=== PATIENT | female | born 1995 | race Hispanic/Latino ===

== ENCOUNTER 2021-06-28 09:35 | Emergency (ER) | payer OTHER ==
[2021-06-28 11:21] LABS: Bilirubin Neg (Negative); Blood, Urine Negative (Negative); Clarity Clear (Clear); Glucose, Urine (Dipstick) Normal (Negative); Ketone, Urine Negative (Negative); Leukocyte Negative (Negative); Nitrite Negative (Negative); Protein, Urine (Dipstick) Negative (Neg-Trace); Urobilinogen Normal mg/dL (Less than 2); pH, Urine 6.5 (5.0-9.0)
[2021-06-28 11:24] LABS: #Eosinphils 0.1 10x3/uL (0.0-0.5); #Monocytes 0.7 10x3/uL (0.0-1.1); #Neutrophils 6.7 10x3/uL (1.5-8.4); %Basophils 0.4 % (0.0-2.0); %Eosinophils 0.8 % (0.0-6.0); %Neutrophils 72.4 % (40.0-75.0); Hemoglobin 14.2 g/dL (12.0-15.5); Mean Corpuscular HGB CONC 34.2 g/dL (32.0-36.0); Mean Corpuscular Hemoglobin 28.8 pg (27.0-33.0); Mean Corpuscular Volume 84.2 fl (81.6-98.3); Mean Platelet Volume 11.3 fl (7.4-10.4); Platelet Count 224 10x3/uL (150-450); RBC Distribution Width 11.9 % (11.5-14.5); Red Blood Cell (RBC) Count 4.93 10x6/uL (3.90-5.03); White Blood Cell (WBC) Count 9.2 10x3/uL (3.5-10.5)
== END 2021-06-28 12:50 | disposition home or self-care (01) ==
LOC: CSHERS 09:35
DX: O20.0 Threatened abortion (principal); Z3A.09 9 weeks gestation of pregnancy
CPT/HCPCS: 36415; 76815; 81003; 84702; 85025; 86900; 86901

== ENCOUNTER 2021-12-20 08:25 | Observation (INO) | payer OTHER ==
[2021-12-20] MEDS ORDERED: Docusate 100 MG CAP PO PRN (09:50)
[2021-12-20] MEDS ORDERED: Promethazine HCl 25 MG/ML VIAL IM PRN (09:50)
[2021-12-20] MEDS ORDERED: Lidocaine 1% (PF) 30 ML VIAL SC PRN (09:50)
[2021-12-20] MEDS ORDERED: Ondansetron PF 4 MG/2 ML Vial IVP PRN (09:50)
[2021-12-20] MEDS ORDERED: Acetaminophen 500 MG TAB PO PRN (09:50)
[2021-12-20] MEDS ORDERED: hydrALAZINE 20 MG/ML VIAL SLOW IVP PRN (09:50)
[2021-12-20] MEDS ORDERED: Zolpidem Tartrate 5 MG TAB PO PRN (09:50)
[2021-12-20 09:53] VITALS: BMI 29.9
[2021-12-20] MEDS: Betamet Acet/Betamet Na Ph 30 MG/5 ML VIAL IM SCH (10:41)
[2021-12-20] MEDS: Lactated Ringer's 1,000 ML IV SCH ×2 (11:25→17:55)
[2021-12-20 11:48] LABS: Hemoglobin 11.3 g/dL (12.0-15.5); Mean Corpuscular HGB CONC 32.6 g/dL (32.0-36.0); Mean Corpuscular Hemoglobin 25.9 pg (27.0-33.0); Mean Corpuscular Volume 79.4 fl (81.6-98.3); Mean Platelet Volume 11.3 fl (7.4-10.4); Platelet Count 226 10x3/uL (150-450); RBC Distribution Width 13.5 % (11.5-14.5); Red Blood Cell (RBC) Count 4.37 10x6/uL (3.90-5.03); White Blood Cell (WBC) Count 8.5 10x3/uL (3.5-10.5)
[2021-12-20 12:21] LABS: Syphilis Antibody Nonreactive (Nonreactive); Syphilis Antibody Index 0.03 S/CO (<1.00 Non-Reactive)
[2021-12-20 12:22] LABS: Hep B Surf Ag Non-Reactive S/CO (NonReactive)
[2021-12-20 14:07] LABS: SARS-CoV-2 NAA Rapid Test Not Detected (NotDetected)
[2021-12-21] MEDS: Betamet Acet/Betamet Na Ph 30 MG/5 ML VIAL IM SCH (10:52)
== END 2021-12-21 11:02 | disposition home or self-care (01) ==
LOC: CSHLD/OP 08:25 → CSHLD 18:38
PROVIDERS: ADMIT Obstetrics & Gynecology; ATTEND Obstetrics & Gynecology
DX: O46.93 Antepartum hemorrhage, unspecified, third trimester (principal); O99.013 Anemia complicating pregnancy, third trimester; Z3A.34 34 weeks gestation of pregnancy; Z20.822 Contact with and (suspected) exposure to COVID-19
CPT/HCPCS: 36415; 76819; 85027; 86780; 86850; 86900; 86901; 87340; 99285; J0702; J7120; U0002